=== PATIENT | male | born 1970 | race Two or more races ===

== ENCOUNTER 2020-01-18 12:34 | Emergency (ER) | payer OTHER ==
[2020-01-18 13:03] VITALS: PULSE 85; TEMP 98.5; BMI 28.3
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
[2020-01-18 14:21] VITALS: BP 150/90
== END 2020-01-18 14:21 | disposition home or self-care (01) ==
LOC: JER 12:34
DX: Z04.1 Encounter for examination and observation following transport accident (principal); R07.9 Chest pain, unspecified; M79.604 Pain in right leg; M79.605 Pain in left leg; I10 Essential (primary) hypertension; V43.52XA Car driver injured in collision with other type car in traffic accident, initial encounter; Y92.414 Local residential or business street as the place of occurrence of the external cause; Y93.89 Activity, other specified; Y99.8 Other external cause status
CPT/HCPCS: 71046-TC-FY; 71111-TC-FY; 99283-25